=== PATIENT | female | born 1970 | race Caucasian/White ===

== ENCOUNTER → 2019-11-04 | Day surgery (SDC) | payer OTHER ==
[~2019-11-04] MED LIST: ACETAMINOPHEN 325 MG TABLET PO PRN; ALBUTEROL SULFATE 2.5 MG/3 ML NEBU. NEB PRN; ATROPINE 0.5 MG/5 ML DISP.SYRIN. IV PRN; FURO-69 PO; IV RINGERS SOLUTION,LACTATED 1,000 ML IV SCH; MIDAZOLAM HCL PF 2 MG/2 ML VIAL. IV PRN; ONDANSETRON PF 4 MG/2 ML VIAL. IV PRN; PHENOL ORAL SPRAY 177ML BOTTLE. MM PRN; PROPOFOL 20 ML IV ONE; SPIR25TA5 PO; diphenhydrAMINE 50 MG/ML VIAL IV PRN
[2019-11-04 10:35] VITALS: BP 120/69
--- NOTE | 2019-11-05 15:07 | PATHOLOGY ---
[facility] Accession Number: [id number] . 01 Material submitted: . colon - ASCENDING COLON POLYP. Modifiers: ascending . 01 Clinical history: . Screening. . 02 Diagnosis: Colon biopsies, ascending colon polyp: - Sessile serrated polyp/adenoma. . (JPM:pravin; 11/05/2019) QMS 11/05/2019 0842 Local . 02 Comment: There is no high-grade dysplasia or evidence of malignancy. . 02 Electronically signed: . Ney Singleton MD, Pathologist NPI- [id number] . 01 Gross description: . Received in formalin labeled "Ciaran, Kim, ascending colon polyp" is a 0.4 x 0.2 x 0.1 cm aggregate of billingsley-brown mucosa fragments. The specimen is submitted in A1. ([facility] [place]; 11/04/2019) [facility] 11/04/2019 1822 Local . 02 Pathologist provided ICD-10: D12.2 . 02 CPT . 123852 Specimen Comment: A courtesy copy of this report has been sent to [phone] Specimen Comment: [id number] Specimen Comment: Report sent to / DR OLIVO Specimen Comment: A duplicate report has been generated due to demographic updates. Performed at: 01 [facility] [address], [place] [id number] MD Ion Roque MD Phone: [phone] Performed at: 02 [facility] [address] [place], [place] [id number] MD Ney Singleton MD Phone: [phone]
== END | disposition home or self-care (01) ==
LOC: SURG 08:27
PROVIDERS: ATTEND Emergency Medicine
DX: Z12.11 Encounter for screening for malignant neoplasm of colon (principal); D12.2 Benign neoplasm of ascending colon; K64.8 Other hemorrhoids; K74.69 Other cirrhosis of liver; Z79.899 Other long term (current) drug therapy
CPT/HCPCS: 45380; 88305; J2704; J7120